=== PATIENT | female | born 1955 | race African-American/Black ===

== ENCOUNTER 2018-04-13 08:45 | Inpatient (IN) ==
[2018-04-13] MEDS ORDERED: DUONEB (A & A) INH ONE (09:28)
[2018-04-13] MEDS ORDERED: ROCEPHIN 1 GM in NS 50 ML IV ONE (09:28)
[2018-04-13] MEDS ORDERED: SOLU-MEDROL IV ONE (09:28)
[2018-04-13] MEDS ORDERED: ZITHROMAX PO ONE (09:30)
[2018-04-13 09:56] LABS: BASO# 0.01 X1000 (0.0-0.2); BASO% 0.1 % (0.0-0.8); EOS# 0.01 X1000 (0.0-0.7); EOS% 0.1 % (0.0-10.0); HEMATOCRIT 41.5 % (37.0-47.0); HEMOGLOBIN 12.7 g/dL (12.0-16.0); IMM GRAN# 0.02 X1000 (0.0-0.04); IMM GRAN% 0.3 % (0.0-0.5); LYMPH# 0.64 X1000 (1.2-3.4); LYMPH% 8.4 % (20.5-51.1); MCHC 30.6 g/dL (33-37); MCV 91.6 FL (81-99); MONO# 0.49 X1000 (0.11-0.59); MONO% 6.4 % (1.7-9.3); MPV 10.9 FL (7.4-10.4); NEUT# 6.47 X1000 (1.4-6.5); NEUT% 84.7 % (42.2-75.2); PLT 187 X1000 (130-400); RBC 4.53 XMIL (4.2-5.4); WBC 7.64 X1000 (4.8-10.8)
--- NOTE | 2018-04-13 10:29 | Diag Imaging Result Doc PS360 ---
CHEST-2 VIEWS - 04/13/2018 INDICATION: sob COMPARISON: None FINDINGS: There is some faint linear atelectasis in the lung bases. No substantial infiltrates. Heart size and pulmonary vascularity is normal. No pneumothorax or pleural effusion. IMPRESSION: Faint linear atelectasis in the lung bases. Electronically signed by Waylon Mead 04/13/2018 10:26 AM
[2018-04-13 10:31] LABS: ALB/GLOB RATIO 1.2; ALBUMIN 4.3 g/dL (3.5-5.0); CALCIUM 10.3 mg/dL (8.8-10.2); CREATININE 1.2 mg/dL (0.5-0.9); POTASSIUM 4.4 mmol/L (3.5-5.1); TOTAL BILIRUBIN 0.54 mg/dL (0.20-1.00); TOTAL PROTEIN 7.8 g/dL (6.3-8.3)
--- NOTE | 2018-04-13 10:48 | EKG Report ---
Test Performed on : 04/13/2018 10:27:45 AM Test Reason : sob Blood Pressure : / mmHG Vent. Rate : 091 BPM Atrial Rate : 091 BPM P-R Int : 164 ms QRS Dur : 068 ms QT Int : 404 ms P-R-T Axes : 055 010 -11 degrees QTc Int : 496 ms Normal sinus rhythm. ST & T wave abnormality, consider anterior ischemia Prolonged QT Abnormal ECG When compared with ECG of 19-APR-2017 16:21, T wave inversion now evident in Inferior leads T wave inversion now evident in Anterior leads Nonspecific T wave abnormality, improved in Lateral leads QT has lengthened Unconfirmed Result
--- NOTE | 2018-04-13 11:50 | PROVIDER DOCUMENTATION ---
HPI-Respiratory General - General Chief Complaint: Shortness of Breath Stated Complaint: sob Time Seen by Provider: 04/13/18 09:17 Source: patient Allergies/Adverse Reactions: Patient Allergies Allergy/AdvReac Type Severity Reaction Status Date / Time No Known Allergies Allergy Verified 11/27/15 12:23 Home Medications: Home Medication List Medication Instructions Recorded Confirmed Last Taken Type Losartan/Hydrochlorothiazide 1 each PO DAILY 03/01/12 04/13/18 04/13/18 History [Hyzaar 100/25 Tablet] Fluticasone 50 Mcg Nasal [place] 2 spray JAMMIE DAILY 11/27/15 04/13/18 04/20/17 History [Flonase] Gabapentin 300 mg PO TID 11/27/15 04/13/18 04/13/18 History Acetaminophen [Extra Strength 2 tab PO Q6HR 04/19/17 04/13/18 04/13/17 History Non-Aspirin] Albuterol Sulfate [Ventolin Hfa] 2 puff IH PRN PRN 04/19/17 04/13/18 04/18/17 History Ascorbic Acid/Vitamin E/Biotin 1 each PO DAILY 04/19/17 04/13/18 04/10/17 History [Hair Skin Nails-Biotin Gummies] Biotin 10,000 mcg PO DAILY 04/19/17 04/13/18 04/10/17 History Cholecalciferol (Vitamin D3) 2 cap PO DAILY 04/19/17 04/13/18 04/10/17 History [Vitamin D3] Cranberry Conc/Ascorbic Acid 2 each PO BID 04/19/17 04/13/18 04/10/17 History [Cranberry Concentrate Softgel] Fluticasone/Vilanterol [Breo 1 each IH DAILY 04/19/17 04/13/18 04/13/18 History Ellipta 100-25 Mcg INH] Folic Acid 1 mg PO DAILY 04/19/17 04/13/18 04/10/17 History Ginkgo Biloba 2 cap PO BID 04/19/17 04/13/18 04/10/17 History Gluc/Rinku-MSM#2/C/D3/Frank/Born 1 each PO DAILY 04/19/17 04/13/18 04/10/17 History [Kxxslqftsy-Btbgnuwkudk-EJT Tab] Methotrexate 3 tab PO SA 04/19/17 04/13/18 04/10/17 History Metoprolol Succinate E.r. [Toprol 0.5 tab PO BID 04/19/17 04/13/18 04/13/18 History Xl] Multivit-Min/Folic Acid/Biotin 1 each PO DAILY 04/19/17 04/13/18 04/10/17 History [Women Multivit W-Biotin Gummy] Multivit-Minerals/Folic Acid 2 tab PO DAILY 04/19/17 04/13/18 04/10/17 History [Centrum Multigummies] Mycophenolate Mofetil 250 mg PO BID 04/19/17 04/13/18 04/10/17 History Omeprazole 20 mg PO DAILY 04/19/17 04/13/18 04/10/17 History Prednisone 5 mg PO DAILY 04/19/17 04/13/18 04/13/18 History Albuterol Sulfate [Proair Hfa] 8.5 gm IH PRN PRN 04/13/18 04/13/18 Unknown History Aspirin [Aspir-Low] 81 mg PO DAILY 04/13/18 04/13/18 04/13/18 History - History of Present Illness-Resp Nature of Presenting Problem: HPI: Pt reprost to ED with SOB. 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 she states that for the past few days she has been feeling SOB. She states that this am while at work her SOB became progressively worse, she called EMS. She denies CP, she also complains of cough and dypsnea upon exertion. Quality of Pain: reports: none Severity in ED: reports: moderate Onset/Duration: reports: this morning Timing: reports: improving Exposure: reports: unknown cause Cough Quality/Degree: reports: mild Episode Frequency: chronic episodes Current Respiratory Medication Therapy: Initiated albuterol/atrovent inhale, Initiated steroid inhaler Modifying Factors: improves with: exertion, coughing Associated Symptoms: reports: shortness of breath Similar Symptoms Previously?: Yes Recently seen or treated by another doctor?: Yes Review of Systems - Adult - REVIEW OF SYSTEMS - ADULT Constitutional: reports: no symptoms reported Eyes: reports: no symptoms reported Ears, Nose, Mouth & Throat: reports: no symptoms reported Cardiovascular: reports: no symptoms reported Respiratory: reports: see HPI Gastrointestinal: reports: no symptoms reported Genitourinary: reports: no symptoms reported Musculoskeletal: reports: no symptoms reported Integumentary: reports: no symptoms reported Neurological: reports: no symptoms reported Psychiatric: reports: no symptoms reported Endocrine: reports: no symptoms reported Hematologic/Lymphatic: reports: no symptoms reported Allergic/Immunologic: reports: no symptoms reported All Other Systems: Reviewed and Negative Past History - Adult - PAST MEDICAL HISTORY-ADULT Review of Records: reports: Old Records Reviewed, Nursing Assessment Review, Medications Reviewed, Social history reviewed & non-contributory. Major Childhood Illnesses: reports: denies history Cardiovascular: reports: HTN Respiratory: reports: COPD, other (sarcoidosis) Gastrointestinal: reports: denies history Obstetrical/Gynecological: reports: denies history Genitourinary: reports: denies history Musculoskeletal: reports: intervertebral disc disease, neck/back injury Neurological: reports: denies history Endocrine/Immune: reports: denies history Other Conditions: reports: other (macular degeneration) - PRIOR SURGERIES/PROCEDURES Surgical/Procedure History: reports: hysterectomy - IMMUNIZATION STATUS Childhood Immunizations: See Nurse Assessment Flu Vaccine: See Nurse Assessment - FAMILY HISTORY Family History: reviewed, not pertinent - SOCIAL HISTORY Smoking: denies Substance Use: none/never Alcohol Use Frequency: never Living Situation: family Physical Exam-General - PHYSICAL EXAM-ADULT Initial Vital Signs Reviewed: Yes - CONSTITUTIONAL General Appearance: appears well, alert, no apparent distress - EYES Eyes: pink conjunctivae - HEAD, EARS, NOSE, MOUTH & THROAT HENMT: moist mucous membranes - NECK Neck: full range of motion - RESPIRATORY Respiratory: chest non-tender, lungs clear, normal breath sounds, no pleuratic chest pain. negative: crackles, rales, rhonchi, stridor, wheezing - CARDIOVASCULAR Cardiovascular: normal peripheral pulses, regular rate, rhythm, no edema - GASTROINTESTINAL (ABDOMEN) Abdominal Exam: normal bowel sounds, non tender, soft, no organomegaly - LYMPHATIC Lymphatic: no adenopathy - MUSCULOSKELETAL Extremity: non-tender, normal gait - SKIN Integumentary: normal color, normal turgor, warm/dry - NEUROLOGIC Neurologic: grossly normal - PSYCHIATRIC Psych/Mental Status: normal mood/affect, normal thought content, normal thought process Progress - PLAN OF CARE/RESULTS Progress/Plan/Lab Results: Vital Signs - 8 hr 04/13/18 08:59 04/13/18 09:00 04/13/18 09:01 Temperature Pulse Rate 94 H Respiratory Rate 27 H Blood Pressure 108/83 O2 Sat by Pulse Oximetry 85 L 89 L 93 L 04/13/18 09:02 04/13/18 09:05 04/13/18 09:10 Temperature 98.5 F Pulse Rate 96 H 93 H 94 H Respiratory Rate 19 24 16 Blood Pressure 105/78 105/78 O2 Sat by Pulse Oximetry 91 L 93 L 95 04/13/18 09:20 04/13/18 09:30 04/13/18 09:34 Temperature Pulse Rate 95 H 95 H 94 H Respiratory Rate 17 27 H 31 H Blood Pressure 113/102 O2 Sat by Pulse Oximetry 89 L 93 L 93 L 04/13/18 09:40 04/13/18 09:50 04/13/18 10:16 Temperature Pulse Rate 92 H 92 H 93 H Respiratory Rate 19 23 18 Blood Pressure O2 Sat by Pulse Oximetry 95 93 L 93 L 04/13/18 10:18 04/13/18 10:20 Temperature Pulse Rate 92 H 89 Respiratory Rate 23 Blood Pressure O2 Sat by Pulse Oximetry 92 L 95 Laboratory Results - last 24 hr 04/13/18 04/13/18 09:45 09:45 WBC 7.64 RBC 4.53 Hgb 12.7 Hct 41.5 MCV 91.6 MCH 28.0 MCHC 30.6 L RDW Std Deviation 15.0 H Plt Count 187 MPV 10.9 H Immature Gran % (Auto) 0.3 Neut % (Auto) 84.7 H Lymph % (Auto) 8.4 L Owen % (Auto) 6.4 Eos % (Auto) 0.1 Baso % (Auto) 0.1 Immature Gran # (Auto) 0.02 Neut # (Auto) 6.47 Lymph # (Auto) 0.64 L Owen # (Auto) 0.49 Eos # (Auto) 0.01 Baso # (Auto) 0.01 Sodium 142 Potassium 4.4 Chloride 101 Carbon Dioxide 23 L Anion Gap 18 BUN 28 H Creatinine 1.2 H Estimated GFR/1.73 m2 55 BUN/Creatinine Ratio 23 Glucose 117 H Calculated Osmolality 290 Calcium 10.3 H Total Bilirubin 0.54 AST 66 H ALT 62 H Alkaline Phosphatase 150 H Total Protein 7.8 Albumin 4.3 Globulin 3.5 Albumin/Globulin Ratio 1.2 Orders Category Date Time Status CHEST-2 VIEWS [RAD] Stat Exams 04/13/18 09:28 Completed CBC WITH ELECTRONIC DIFF [HEME] Stat Lab 04/13/18 09:45 Completed COMPREHENSIVE METABOLIC PANEL [CHEM] Stat Lab 04/13/18 09:45 Completed Albuterol 2.5MG/Ipratrop 0.5MG [Duoneb (A & A)] Med 04/13/18 09:28 Discontinued 3 ml INH NOW ONE Azithromycin [Zithromax] Med 04/13/18 09:30 Discontinued 500 mg PO NOW ONE CefTRIAXONE [Rocephin] 1 gm Med 04/13/18 09:28 Discontinued 0.9% Sodium Chloride Inj [Ns] 50 ml IV NOW Methylprednisolone Sod Succ [Solu-Medrol] Med 04/13/18 09:28 Discontinued 60 mg IV NOW ONE Aerosol Treatments Routine Oth 04/13/18 09:30 Completed Aerosol Treatments Stat Oth 04/13/18 09:30 Completed EKG [EKG] Stat Ther 04/13/18 09:28 Draft A/P : Pt is having COPD exacerbation. Labs wnl. Pt greatly improved after neb Tx , steroids, and AB. Will DC home with antiobiotics and close FU with PCP. Vitals stable. Result Diagrams: 04/13/18 09:45 04/13/18 09:45 Departure - Departure Date of Disposition Decision: 04/13/18 Time of Disposition Decision: 11:59 DIAGNOSIS: COPD exacerbation Disposition: HOME 01 Certified Medical Emergency: Emergent Condition: Fair Additional Freetext Instructions: We have examined and treated you today on an emergency basis only. This was not a substitute for, or an effort to provide, complete medical care. In most cases , you must let your doctor check you again. Tell your doctor about any new or lasting problems. We cannot recognize and treat all injuries or illnesses in one Emergency Department visit. If you had special tests, such as X-rays or CT scans, will be reviewed by radiologist and will call you if there are any new suggestions Follow up with primary care provider in 1 to 2 days if no improvement. If you do not have a primary care provider, you need to choose one as soon as possible. Take medicines as prescribed. Monitor for any side effects or adverse events from medications. If any side effect, adverse event or rash develops, or if you suspect any other adverse reaction to the medication, then discontinue the medication immediately and contact clinic /PCP or go to the nearest ER. Narcotic meds / sedative meds instruction - patent advised not to drive, operate any machinery or go into water after taking meds as it may impair mental ability to react to the situation in an appropriate manner . Continue other current medicines. Follow up with PCP within 24-48 hours, or sooner if symptoms worsen or fail to improve. Patient / guardian verbalizes understanding of treatment plan, medication, and side effects and agrees with treatment plan. Patient leaves ER in stable condition and ambulatory state. Return to ER as needed. Discharge instructions reviewed verbally and given to patient in written form. Follow up with primary care provider. Referrals and Follow-Ups: Syeda Ibarra MD [Primary Care Provider] - - Critical Care Note This patient required my direct & personal management of CC.: No Attestation - Physician/ BENITA Attestation Patient care was provided by Advanced Practice Provider:: No The physician spent face to face time with patient:: Yes Advanced Practice Provider documentation review:: Supervising physician onsite and consulted in the evaluation and care of this patient. The physician did have a face to face encounter with the patient.
[2018-04-13] MEDS ORDERED: DUONEB (A & A) INH PRN (16:29)
[2018-04-13] MEDS ORDERED: TYLENOL PO PRN (16:29)
[2018-04-13] MEDS ORDERED: ZOFRAN IV PRN (16:29)
[2018-04-13] MEDS: DUONEB (A & A) INH SCH ×2 (16:53→21:10)
[2018-04-13] MEDS ORDERED: SODIUM CHLORIDE 0.9% INJ SCH (17:00)
[2018-04-13] MEDS: NS 1,000 ML IV SCH (17:49)
[2018-04-13] MEDS: SOLU-MEDROL IV SCH (19:09)
[2018-04-13] MEDS: PROTONIX IV SCH (19:10)
[2018-04-13] MEDS: TOPROL XL PO SCH (22:04)
[2018-04-13] MEDS: CELLCEPT PO SCH (22:04)
[2018-04-13] MEDS: NEURONTIN PO SCH (22:04)
--- NOTE | 2018-04-13 23:51 | HISTORY AND PHYSICAL ---
CHIEF COMPLAINT: Was shortness of breath. HISTORY OF PRESENT ILLNESS: This is a 62-year-old female with sarcoid, no COPD history, presenting with shortness of breath. The patient came in for evaluation. She says she has been short of breath for the last 1 to 2 weeks. She has had a cough but minimal production, no fevers, but she says her shortness of breath is getting progressively worse the point of having persistent dyspnea on exertion. She cannot cross the room without getting short of breath. No fevers noted. She is on CPAP and oxygen at night and she usually sees Dr. Bills. She is on low-dose steroids. She is also on mycophenolate mofetil. Workup in the ER revealed bronchospasm and hypoxia. Her chest x-ray showed linear atelectasis in lung bases. The patient had issues with breathing and shortness of breath, she desaturated to 83-84% prior to discharge and even on oxygen she is about 94% on 3 L and she does have some increased work of breathing. Admitted for sarcoid exacerbation presumably with hypoxia. PAST MEDICAL HISTORY: 1. Sarcoidosis . 2. Allergic rhinitis. 3. Neuropathy. 4. Hypertension. 5. Obstructive sleep apnea. 6. Reported history of COPD although not completely convinced she truly has that. 7. Macular degeneration. PAST SURGICAL HISTORY: She has had hysterectomy and then she had bowel injury and she had to have a partial colectomy and then reversal. FAMILY HISTORY: Mother of a stroke, father unknown of "old age. " SOCIAL HISTORY: She denies tobacco, ethanol is occasional usage. She works for [employer]. ALLERGIES: No known drug allergies. MEDICATION LIST: Is extensive, Tylenol, albuterol, vitamin C, aspirin, biotin, vitamin D3, cranberry, fluticasone, Breo Ellipta daily so she likely has COPD, folic acid daily, gabapentin 300 t.i.d., ginkgo biloba, losartan hydrochlorothiazide 100/25, methotrexate once a day, Toprol-XL 25 b.i.d., multivitamin, mycophenolate mofetil 20/250 b.i.d., omeprazole 20 daily, prednisone 5 daily, azithromycin was a recently given, She was going to be discharged from the ER because of her hypoxia she could not be discharged. REVIEW OF SYSTEMS: No weight loss or anything to that effect. PHYSICAL EXAM: She has a blood pressure 103/77, heart rate of 90, respiratory rate of 19, temperature was 97.6, 85% on room air 92 on 2 L. GENERAL: A well-developed female in no acute distress. HEENT: Was normocephalic, atraumatic. Her right eye is opacified. 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 Extraocular moves were intact. Moist mucous membranes. NECK: Supple. PULMONARY: Bilateral breath sounds clear to auscultation with occasional rhonchi and rales at the bases. GI: Was soft, nontender, nondistended. Bowel sounds are positive. EXTREMITIES: No clubbing or cyanosis. LYMPH: No peripheral edema. NEUROLOGICAL: Nonfocal. MUSCULOSKELETAL: 4/5 in all 4 extremities. LABORATORY DATA: Her white count 7, hemoglobin and hematocrit 12 and 41, platelets 187,000, creatinine 1.2, AST and ALT of 66 and 62. Chest x-ray showed atelectasis. ASSESSMENT: 62-year-old female presenting with hypoxic respiratory failure associated with sarcoid presumably sarcoid exacerbation could be potentially a chronic obstructive pulmonary disease exacerbation. 1. Hypoxic respiratory failure. Will try to wean her O2 requirement although she may require some to go home with especially from a exertional standpoint. 2. Sarcoidosis exacerbation. We will continue regular treatments, steroid treatments and follow for improvement clinically. I will pursue CT scan just to better evaluate. She is on methotrexate which I am not clear if that is for sarcoid or other etiology, may hold that for now. 3. Hypertension. Continue regular medications follow. 4. Disposition. She will likely be here for at least 24 hours, perhaps longer depending on her clinical status. cc: Michel Bean MD [facility]ERKirti
[2018-04-14] MEDS: NS 1,000 ML IV SCH ×2 (02:39→22:20)
[2018-04-14] MEDS: SOLU-MEDROL IV SCH ×3 (02:39→22:21)
[2018-04-14] MEDS: DUONEB (A & A) INH SCH ×4 (03:18→21:31)
[2018-04-14] MEDS ORDERED: LOVENOX SUBQ SCH (06:00)
[2018-04-14 06:05] LABS: HEMATOCRIT 37.5 % (37.0-47.0); HEMOGLOBIN 11.5 g/dL (12.0-16.0); LYMPH# 0.41 X1000 (1.2-3.4); LYMPH% 6.6 % (20.5-51.1); MCH 28.1 PG (27-31); MCHC 30.7 g/dL (33-37); MCV 91.7 FL (81-99); MONO# 0.06 X1000 (0.11-0.59); MPV 10.8 FL (7.4-10.4); NEUT# 5.72 X1000 (1.4-6.5); NEUT% 92.4 % (42.2-75.2); PLT 169 X1000 (130-400); RBC 4.09 XMIL (4.2-5.4); RDW 14.6 % (11.5-14.5); WBC 6.19 X1000 (4.8-10.8)
[2018-04-14 06:46] LABS: AGAP 15; ALB/GLOB RATIO 1.1; ALBUMIN 3.6 g/dL (3.5-5.0); ALKALINE PHOSPHATASE 115 U/L (32-104); BUN 27 mg/dL (8-22); CALCIUM 8.9 mg/dL (8.8-10.2); CHLORIDE 102 mmol/L (98-107); COSMO 287; CREATININE 0.9 mg/dL (0.5-0.9); ESTIMATED GFR > 60; GLUCOSE 176 mg/dL (70-104); GOT 38 U/L (10-30); GPT 48 U/L (10-36); SODIUM 139 mmol/L (136-145); TCO2 22 mmol/L (25-35); TOTAL BILIRUBIN 0.35 mg/dL (0.20-1.00); TOTAL PROTEIN 6.8 g/dL (6.3-8.3)
[2018-04-14 07:00] LABS: LYMPHS 8 % (21-51); MONO 2 % (1-9); SEGS 90 % (42-75)
[2018-04-14] MEDS: VITAMIN D PO SCH (08:02)
[2018-04-14] MEDS: ROCEPHIN 1 GM in NS 50 ML IV SCH (08:02)
[2018-04-14] MEDS: ASPIRIN EC PO SCH (08:02)
[2018-04-14] MEDS: FOLIC ACID PO SCH (08:02)
[2018-04-14] MEDS: NEURONTIN PO SCH ×3 (08:02→22:20)
[2018-04-14] MEDS: PATIENT'S OWN MED PO SCH ×3 (08:03)
[2018-04-14] MEDS: HYZAAR 50/12.5 MG PO SCH (08:03)
[2018-04-14] MEDS: TOPROL XL PO SCH ×2 (08:05→22:19)
[2018-04-14] MEDS: CELLCEPT PO SCH ×2 (08:11→22:19)
[2018-04-14] MEDS: BREO ELLIPTA 100/25 MCG INH INH SCH (10:26)
[2018-04-14 10:54] LABS: BE -2.1 mmoll (-3.0-3.0); BLOOD TYPE ARTERIAL; HCO3-(ACT) 23.3 mmoll (20.0-26.0); METHB 1.2 % (0.0-1.5); O2(CT) 16.1 mL/dL (15.0-23.0); O2HB 95.9 % (95.0-99.0); PCO2(98.6) 36 mmHg (35-45); PO2(98.6) 90 mmHg (60-100); SAMPLE BLOOD; SAO2 98.1 % (95.0-100.0); THB 11.9 g/dL (11.5-17.4)
[2018-04-14 10:55] LABS: ALLEN TEST NO; MODALITY CANNULA
[2018-04-14] MEDS ORDERED: FLU VACCINE IM ONE (10:55)
--- NOTE | 2018-04-14 14:07 | Diag Imaging Result Doc PS360 ---
EXAM: CT THORAX W/CONTRAST INDICATION: pneumonia TECHNIQUE: This exam was performed using automated exposure control, adjustment of mA or kV according to patient size, and/or use of iterative reconstruction technique. COMPARISON: None. FINDINGS: There is a large saddle embolus involving both the right and left main pulmonary arteries and extending into the higher order branches leading to the lower lobes. The clot burden is heavy. There is no evidence of significant cardiomegaly. There are nonspecific borderline and mildly prominent mediastinal lymph nodes. A few contain calcifications suggesting prior granulomatous disease. There are no abnormal mediastinal fluid collections. There is a very small right pleural effusion and minimal right basilar atelectasis. There is even milder subsegmental atelectasis at the left lung base. The lungs are clear, otherwise. There is no evidence of pneumonia. There is no evidence of pulmonary infarct. There is no pneumothorax. Limited views of the upper abdomen are essentially unremarkable. IMPRESSION: 1.Large central saddle pulmonary embolism with a heavy clot burden. 2.Small right pleural effusion and mild bibasilar atelectasis. 3.No evidence of pneumonia. 4.Other external/nonacute findings detailed above. The findings were discussed with Ty Garduno, a nurse on the patient's floor, to be immediately relayed to Dr. Bean at 04/14/2018 2:03 PM and was readback. Electronically signed by Morales Stinson 04/14/2018 2:04 PM
[2018-04-14] MEDS: PRED FORTE 1% OPH SUSPENSION RIGHT EYE SCH ×2 (14:55→22:20)
[2018-04-14] MEDS: LOVENOX SUBQ SCH (14:55)
[2018-04-14] MEDS: FLONASE NAS SCH (15:00)
[2018-04-14] MEDS: PROTONIX IV SCH (17:03)
[2018-04-14 17:52] LABS: URINE SOURCE CATH
[2018-04-14 18:07] LABS: BILIRUBIN URINE NEGATIVE (NEGATIVE); BLOOD URINE NEGATIVE (NEGATIVE); COLOR YELLOW; GLUCOSE URINE 70 mg/dL (NEGATIVE); KETONE URINE NEGATIVE (NEGATIVE); LEUKOCYTES URINE NEGATIVE (NEGATIVE); NITRITE URINE NEGATIVE (NEGATIVE); PH URINE 5.5; PROTEIN URINE TRACE mg/dL (NEGATIVE); SP GRAVITY URINE > 1.050; TURBIDITY URINE CLEAR (CLEAR); UR EPITHELIAL CELLS <10 /HPF (<10); URINE BACTERIA NEGATIVE /HPF; URINE RBC <10 /HPF (<10); URINE WBC <10 /HPF (<10); UROBILINOGEN URINE NORMAL (NORMAL)
--- NOTE | 2018-04-14 23:19 | PROGRESS NOTE ---
DATE: 04/14/2018 SUBJECTIVE: The patient still fairly short of breath but doing too badly. OBJECTIVE: Blood pressure 118/77, heart rate 90, respiratory rate 22, temperature 97.8 degrees, 99% on 2.5 L.Cardiovascular: She is tachy. Pulmonary: She has got diminished breath sounds at the bases and generally speaking throughout. GI: Soft, nontender, nondistended. Bowel sounds are positive. She is visibly working harder to breathe though just lying in bed. LABORATORY STUDIES: White count is 6, hemoglobin and hematocrit 11, 37, platelets 169,000, pH was 7.4, pCO2 36, PaO2 90, BUN and creatinine are 27 [address] today unfortunately shows a large PE saddle embolus, clot burden is heavy. No cardiomegaly. PROBLEM LIST: 1. Pulmonary embolism saddle embolus, she does not have acute indication for any thrombolytics right now but she does have a significant pulmonary embolism, we will anticoagulate, get Dopplers of her legs and but the patient is she has significant pulmonary embolism on both sides, in any case patient was. Acute pulmonary embolism, will continue anticoagulation. She has been placed on Lovenox. I am going to transfer her to the step-[facility] for closer monitoring. We will continue to follow. 2. Sarcoid aware of diagnosis. I am going to knock down her steroids because I am not sure really this is a sarcoid flare per se. 3. We will get VTE Dopplers, not sure what the mechanism of her DVT PE is unless is related to sarcoid. She may need a hypercoagulable workup or at least cancer screening. Pulmonary has already been consulted because she was a patient of Dr. Bills so we will review his treatment and see how she does. 4. Disposition. Care is still very guarded. I think this is more related to acute pulmonary embolism than any other process currently. We will continue to follow closely. Disposition pending her clinical status. cc: Michel Bean MD
[2018-04-15] MEDS: LOVENOX SUBQ SCH ×2 (02:14→14:14)
[2018-04-15] MEDS: PRED FORTE 1% OPH SUSPENSION RIGHT EYE SCH ×4 (02:15→21:45)
[2018-04-15] MEDS: NS 1,000 ML IV SCH ×3 (02:15→14:14)
[2018-04-15] MEDS: DUONEB (A & A) INH SCH ×4 (03:02→20:43)
[2018-04-15 05:57] LABS: HEMOGLOBIN 10.9 g/dL (12.0-16.0); IMM GRAN# 0.03 X1000 (0.0-0.04); IMM GRAN% 0.3 % (0.0-0.5); LYMPH# 0.43 X1000 (1.2-3.4); LYMPH% 4.5 % (20.5-51.1); MCHC 30.3 g/dL (33-37); MCV 92.5 FL (81-99); MONO# 0.29 X1000 (0.11-0.59); MONO% 3.1 % (1.7-9.3); NEUT# 8.74 X1000 (1.4-6.5); NEUT% 92.1 % (42.2-75.2); PLT 177 X1000 (130-400); RBC 3.89 XMIL (4.2-5.4); RDW 14.9 % (11.5-14.5); WBC 9.49 X1000 (4.8-10.8)
[2018-04-15 06:00] LABS: AGAP 13; BUN 26 mg/dL (8-22); CALCIUM 8.8 mg/dL (8.8-10.2); CHLORIDE 103 mmol/L (98-107); COSMO 286; ESTIMATED GFR > 60; GLUCOSE 160 mg/dL (70-104); POTASSIUM 3.7 mmol/L (3.5-5.1); SODIUM 139 mmol/L (136-145); TCO2 23 mmol/L (25-35)
[2018-04-15 07:00] LABS: LYMPHS 5 % (21-51); MONO 4 % (1-9); SEGS 91 % (42-75)
[2018-04-15] MEDS: BREO ELLIPTA 100/25 MCG INH INH SCH (08:12)
[2018-04-15] MEDS ORDERED: TRAVATAN 0.004% OPH SOLN RIGHT EYE SCH (09:00)
[2018-04-15] MEDS: FOLIC ACID PO SCH (09:15)
[2018-04-15] MEDS: TOPROL XL PO SCH ×2 (09:15→21:44)
[2018-04-15] MEDS: ASTELIN NASAL SPRAY NAS SCH (09:15)
[2018-04-15] MEDS: ASPIRIN EC PO SCH (09:15)
[2018-04-15] MEDS: NEURONTIN PO SCH ×3 (09:15→21:44)
[2018-04-15] MEDS: HYZAAR 50/12.5 MG PO SCH (09:15)
[2018-04-15] MEDS: VITAMIN D PO SCH (09:15)
[2018-04-15] MEDS: SOLU-MEDROL IV SCH (09:16)
[2018-04-15] MEDS: CYCLOGYL 1% RIGHT EYE SCH (09:19)
[2018-04-15] MEDS: PATIENT'S OWN MED PO SCH ×3 (09:20)
[2018-04-15] MEDS: ROCEPHIN 1 GM in NS 50 ML IV SCH (09:27)
[2018-04-15] MEDS: CELLCEPT PO SCH ×2 (09:30→21:44)
[2018-04-15] MEDS ORDERED: NS 1,000 ML IV SCH (16:15)
[2018-04-15] MEDS: PROTONIX IV SCH (16:47)
[2018-04-15] MEDS: FLONASE NAS SCH (16:54)
--- NOTE | 2018-04-15 17:31 | PROGRESS NOTE ---
DATE: 04/15/2018 SUBJECTIVE: She is breathing a bit better. She does not look like she is working as hard to breathe than she did previously. So, I do think she is somewhat improved. OBJECTIVE: Vital Signs: Blood pressure 142/82, heart rate of 89, respiratory rate 18, temperature 97.9, 100% on 2 L. Cardiovascular: Regular rate and rhythm. Pulmonary: Bilateral breath sounds. Clear to auscultation. Gastrointestinal: Soft, nontender, nondistended. Bowel sounds are positive. Extremities: No clubbing or cyanosis. Lymphatics: No peripheral edema. Neurologic: Nonfocal. LABORATORY DATA: Her white blood cell count is 9, hemoglobin and hematocrit 10 and 36, platelets 177,000. BUN and creatinine are [address] from yesterday showed a saddle embolism and some right pleural effusion and bibasilar atelectasis. No evidence of pneumonia. PROBLEM LIST: 1. Acute saddle embolism. She has also a left lower extremity DVT. She is on Lovenox. We are going to continue bed rest for at least another 24 hours and start to work on getting up tomorrow. Obviously, she is a high risk for decompensation. Pulmonary is following. 2. Acute hypoxic respiratory failure associated with PE. We will try to wean her O2, but I anticipate she will need oxygen to go home with. 3. Sarcoidosis with possible exacerbation. I am going to decrease her steroids. I really think most of this is related to PE. 4. Hypertension. We will continue regular medications and follow. DISPOSITION: Pending her clinical status, anticipate she will need oxygen. We will kind of see how things look otherwise. We will check a hypercoagulable test because it is not really clear what is causing this. She is up to date on her mammograms and pelvic exams, and those have not been abnormal. She has had a colonoscopy within the last 5 years and that has also been normal from what I understand. So, we are left with hypercoagulable workup. Unclear sarcoid is implied extensively with DVT formation. We will continue to follow. cc: Michel Bean MD
--- NOTE | 2018-04-15 19:57 | ECHO REPORT ---
ORDER DATE: 04/14/2018 ECHOCARDIOGRAM: INDICATION: 1. Hypoxia. FINDINGS: 1. The right atrium appears normal in size. 2. Mild tricuspid regurgitation. RV systolic pressure of 47. 3. Normal RV size and systolic function. 4. Trace pulmonic insufficiency. 5. Normal left atrial size at 3.3 cm. 6. No mitral prolapse. Trace mitral regurgitation. 7. Normal LV size, end-diastolic dimension of 3 cm. Normal wall thicknesses with a posterior and interventricular septal wall thickness of 0.9 cm each. There is hyperdynamic LV systolic function. The estimated ejection fraction is greater than 70%. There is a mid left ventricular cavity gradient of 37 mmHg on Valsalva. This would be consistent with the hyperdynamic function. 8. Aortic valve opens well. It is somewhat sclerotic, but not stenotic. The valve is trileaflet. There is trace insufficiency. 9. Aorta appears normal in visualized segments. 10. No pericardial effusion seen. cc: MD Michel Barros MD
--- NOTE | 2018-04-15 21:15 | CONSULTATION ---
DATE OF SERVICE: 04/14/2018 REQUESTING PROVIDER: Dr. Conor Bean REASON FOR CONSULTATION: Resp failure, sarcoidosis HISTORY OF PRESENT ILLNESS: This is a 62 yo AA female with a medical history of sarcoidosis, COPD, ROSA MARIA, hypertension, glaucoma, supraglottic stenosis, chronic sinusitis, chronic otitis media with effusion, chronic neck pain and neuropathy. She is well known to our office for sarcoidosis, COPD and ROSA MARIA. She was sent to ER from her work place yesterday morning via EMS for severe SOB. She was hypoxemic upon arrival with oxygen saturation at room air of 80s. CBC was non-significant, BMP showed BUN 28, creatinine 1.2, calcium 10.3, AST 66, ALT 62 and alkaline phosphatase 150. CXR revealed faint line atelectasis in the lung bases. She has been admitted to the medical floor for further evaluation and management. At the time of my exam, patient just came back from chest CT. She apparently has trouble to transfer herself from the wheelchair to the bed due to severe SOB. She reports some mild dry cough, mild nausea, dizziness and general weakness, but no fever, chill, pedal edema, chest pain or palpitation. PAST MEDICAL AND SURGICAL HISTORY: 1. Sarcoidosis 2. COPD, minimal severity based on the last PFT on 01/16/2018 in our office 3. ROSA MARIA on CPAP therapy with nocturnal oxygen at home 4. Hypertension 5. Glaucoma 6. Supraglottic stenosis 7. Chronic sinusitis 8. Chronic otitis media with effusion s/p bilateral maryingotomy and tympanovestomy tube insertion on 04/20/2017 9. Chronic neck pain 10. Neuropathy 11. Hysterectomy 12. Bowel injury with partial colectomy SOCIAL HISTORY: Patient works for [employer]. She denies any history of alcohol, tobacco or illicit drug use. FAMILY HISTORY: Positive for stroke. ALLERGIES: No known drug allergies. REVIEW OF SYSTEMS: A 10-point review of systems was conducted and the pertinent is listed within the HPI, otherwise noncontributory. PHYSICAL EXAMINATION: Vital Signs: Temperature of 97.8 degrees, blood pressure 118/77, pulse 90, respiratory rate 28, oxygen saturation 99% with a NC at 2.5L. General: patient is in mild respiratory distress. She is sitting in the wheelchair. She need a minimal assistance to transfer from the wheelchair to the bed due to severe SOB. 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 Respiratory: Rapid and shallow with diminished breathing sounds bilaterally, otherwise, clear to auscultation. Cardiovascular: Regular rate and rhythm without appreciable murmur. Gastrointestinal: Normal bowel sounds in all 4 quadrants, soft, nontender, and nondistended. Extremities: No pedal edema. No cyanosis or clubbing. Neurologic: Alert and oriented x3; able to follow commands; speech is fluent; she has generalized weakness, but she moves all 4 extremities equally well. DIAGNOSTIC DATA: CT thorax with contrast reveals large central saddle pulmonary embolism with a heavy clot burden, a very small right pleural effusion and minimal right basilar atelectasis; no evidence of pneumonia, pulmonary infarct, or pneumothorax. LABORATORY DATA: WBC 6.19, Hgb 11.5, Hct 37.5, PLT 169,000; Na+ 139, K+ 4.0, Cl - 102, CO2 22, BUN 27, Creatinine 0.9, glucose 176, AST 38, ALT 48, Alkaline phosphatase 115; ABG: pH 7.40, pCO2 36, pO2 90, HCO3- 23.3, base excess -2.1 and oxyhemoglobin 95.9. ASSESSMENT AND PLAN: This is a 62 yo AA female with a medical history of sarcoidosis, COPD, ROSA MARIA, hypertension, glaucoma, supraglottic stenosis, chronic sinusitis, chronic otitis media with effusion, chronic neck pain and neuropathy. She has been admitted to the medical floor with acute hypoxemic respiratory failure and sarcoid exacerbation. Chest CT today revealed large central saddle pulmonary embolism with a heavy clot burden. 1. Pulmonary embolism: Patient is currently stable; agree to start resuscitation with IV fluid and anticoagulant therapy with enoxaparin; continue supplemental oxygen; agree to do the venous doppler studies to rule in/out DVT; agree to put patient in strict bedrest at this time; agree to transfer patient to the [facility] for closer observation; consider hematology evaluation if needed. 2. SOB secondary to pulmonary embolism, sarcoidosis and COPD: continue supplemental oxygen; continue antibiotics steroids, and bronchodilators. 3. ROSA MARIA: BiPAP at bedtime and PRN with oxygen per protocol 4. Continue GI and DVT prophylaxis. Thank you for the courtesy of this consult. Dictated by MCKENZIE Delgado for Simin Bills MD cc: MCKENZIE Delgado MD [facility]
[2018-04-15] MEDS: TRAVATAN 0.004% OPH SOLN LEFT EYE SCH (21:44)
[2018-04-16] MEDS: PRED FORTE 1% OPH SUSPENSION RIGHT EYE SCH ×4 (03:04→21:31)
[2018-04-16] MEDS: LOVENOX SUBQ SCH ×2 (03:05→14:06)
[2018-04-16] MEDS: DUONEB (A & A) INH SCH ×4 (03:13→21:25)
[2018-04-16 05:39] LABS: HEMATOCRIT 35.5 % (37.0-47.0); HEMOGLOBIN 10.8 g/dL (12.0-16.0); IMM GRAN# 0.05 X1000 (0.0-0.04); IMM GRAN% 0.6 % (0.0-0.5); LYMPH# 0.61 X1000 (1.2-3.4); LYMPH% 7.4 % (20.5-51.1); MCH 28.2 PG (27-31); MCHC 30.4 g/dL (33-37); MCV 92.7 FL (81-99); MONO% 8.5 % (1.7-9.3); MPV 10.5 FL (7.4-10.4); NEUT# 6.92 X1000 (1.4-6.5); NEUT% 83.5 % (42.2-75.2); PLT 187 X1000 (130-400); RBC 3.83 XMIL (4.2-5.4); RDW 14.8 % (11.5-14.5); WBC 8.28 X1000 (4.8-10.8)
[2018-04-16 06:51] LABS: AGAP 12; BUN 22 mg/dL (8-22); CALCIUM 8.6 mg/dL (8.8-10.2); CHLORIDE 101 mmol/L (98-107); COSMO 282; CREATININE 0.8 mg/dL (0.5-0.9); ESTIMATED GFR > 60; GLUCOSE 146 mg/dL (70-104); MAGNESIUM 1.7 mg/dL (1.5-2.7); POTASSIUM 3.8 mmol/L (3.5-5.1); SODIUM 138 mmol/L (136-145); TCO2 25 mmol/L (25-35)
[2018-04-16] MEDS: BREO ELLIPTA 100/25 MCG INH INH SCH (07:29)
[2018-04-16] MEDS: CYCLOGYL 1% RIGHT EYE SCH (08:56)
[2018-04-16] MEDS: FLONASE NAS SCH (08:58)
[2018-04-16] MEDS: ASPIRIN EC PO SCH (08:59)
[2018-04-16] MEDS: TOPROL XL PO SCH ×2 (08:59→21:32)
[2018-04-16] MEDS: CELLCEPT PO SCH ×2 (08:59→21:32)
[2018-04-16] MEDS: ASTELIN NASAL SPRAY NAS SCH (08:59)
[2018-04-16] MEDS: NEURONTIN PO SCH ×3 (08:59→21:32)
[2018-04-16] MEDS: FOLIC ACID PO SCH (08:59)
[2018-04-16] MEDS: SOLU-MEDROL IV SCH (09:00)
[2018-04-16] MEDS: HYZAAR 50/12.5 MG PO SCH (09:00)
[2018-04-16] MEDS: ROCEPHIN 1 GM in NS 50 ML IV SCH (09:00)
[2018-04-16] MEDS: VITAMIN D PO SCH (09:00)
[2018-04-16] MEDS: PATIENT'S OWN MED PO SCH ×3 (09:01)
--- NOTE | 2018-04-16 15:14 | PROGRESS NOTE ---
DATE: 04/16/2018 SUBJECTIVE: Patient resting comfortably in bed. Not in any obvious distress. OBJECTIVE: Vital Signs: As follows: Temperature 97.9, pulse 75, respiratory rate 17, blood pressure 137/85, oxygen is 93%. HEENT: Atraumatic, normocephalic. Cardiovascular: S1, S2. Respiratory: Has evidence of good air entry bilaterally. Abdomen: Soft, nontender. No masses felt. Extremities: Extremities have edema in both legs. Central Nervous System: No obvious focal deficits noted. LABS: As follows: WBC is 8.28, hematocrit is 35.5 with a platelet count of 187,000. Sodium 138, potassium 3.8, chloride is 101, bicarb 25, BUN is 20, creatinine 0.8. ASSESSMENT AND PLAN: 1. Acute pulmonary thromboembolism. Continue anticoagulation. 2D echo of the heart reviewed. I do not see any sign of right ventricular strain. 2. Sarcoidosis. Continue steroids. 3. Hypertension. Continue current antihypertensive regimen. 4. DVT prophylaxis. Patient is currently on Lovenox. 5. GI prophylaxis. PPI. cc: Micah Ho MD
[2018-04-16] MEDS: PROTONIX IV SCH (16:44)
[2018-04-16] MEDS: TRAVATAN 0.004% OPH SOLN LEFT EYE SCH (21:32)
[2018-04-17] MEDS: LOVENOX SUBQ SCH ×2 (02:23→14:43)
[2018-04-17] MEDS: PRED FORTE 1% OPH SUSPENSION RIGHT EYE SCH ×4 (02:23→20:53)
[2018-04-17] MEDS: DUONEB (A & A) INH SCH ×4 (03:38→22:21)
[2018-04-17] MEDS: BREO ELLIPTA 100/25 MCG INH INH SCH (08:24)
[2018-04-17] MEDS: ASTELIN NASAL SPRAY NAS SCH (08:37)
[2018-04-17] MEDS: CYCLOGYL 1% RIGHT EYE SCH (08:38)
[2018-04-17] MEDS: FLONASE NAS SCH (08:38)
[2018-04-17] MEDS: HYZAAR 50/12.5 MG PO SCH (08:39)
[2018-04-17] MEDS: ASPIRIN EC PO SCH (08:39)
[2018-04-17] MEDS: FOLIC ACID PO SCH (08:39)
[2018-04-17] MEDS: TOPROL XL PO SCH ×2 (08:39→20:53)
[2018-04-17] MEDS: NEURONTIN PO SCH ×3 (08:39→20:53)
[2018-04-17] MEDS: VITAMIN D PO SCH (08:39)
[2018-04-17] MEDS: SOLU-MEDROL IV SCH (08:40)
[2018-04-17] MEDS: CELLCEPT PO SCH ×2 (08:40→20:53)
[2018-04-17] MEDS: ROCEPHIN 1 GM in NS 50 ML IV SCH (08:40)
[2018-04-17] MEDS: PATIENT'S OWN MED PO SCH ×3 (08:40)
--- NOTE | 2018-04-17 13:30 | PROGRESS NOTE ---
DATE: 04/17/2018 SUBJECTIVE: Patient has no major complaints. She is sitting up in bed. OBJECTIVE: Vital signs: Blood pressure is 116/70, heart rate 74, respiratory rate 17, temperature 97.7 degrees, 98% on 2 L. Cardiovascular: Regular rate and rhythm. Pulmonary: Bilateral breath sounds clear to auscultation. GI: Soft, nontender, nondistended. Bowel sounds are positive. Extremities: No clubbing or cyanosis. Lymphatic: No peripheral edema. Neurological: Exam was nonfocal. LABORATORY DATA: White count is 8, hemoglobin and hematocrit 10 and 35, platelets 187,000. Protein C and antithrombin activity are normal. Basic was normal. Homocystine level was normal. PROBLEM LIST: 1. Saddle embolism, acute pulmonary embolism, and left lower extremity deep vein thrombosis. She is on anticoagulation. I think we could probably transition her in the next 24 hours if she is stable. We are going slow with her because she does have a saddle PE and she still has a DVT. We will try to get her up today, possibly with PT. 2. Sarcoidosis. She is on breathing treatments. I think her breathing is improving. Will decrease her steroids. 3. Hypertension. We will continue her current medication and follow. 4. Deep vein thrombosis prophylaxis. She has a PE. We are beyond prophylaxis. DISPOSITION: I think she will need home oxygen. I think if she is stable tomorrow we can transition her to Xarelto or Eliquis and go from there. cc: Michel Bean MD
[2018-04-17] MEDS: PROTONIX IV SCH (16:35)
[2018-04-17] MEDS: TRAVATAN 0.004% OPH SOLN LEFT EYE SCH (20:53)
[2018-04-18] MEDS: LOVENOX SUBQ SCH (01:54)
[2018-04-18] MEDS: PRED FORTE 1% OPH SUSPENSION RIGHT EYE SCH ×4 (01:54→21:21)
[2018-04-18] MEDS: DUONEB (A & A) INH SCH ×4 (03:28→21:22)
[2018-04-18 05:35] LABS: HEMATOCRIT 39.6 % (37.0-47.0); HEMOGLOBIN 12.3 g/dL (12.0-16.0); IMM GRAN# 0.08 X1000 (0.0-0.04); IMM GRAN% 0.9 % (0.0-0.5); LYMPH# 0.85 X1000 (1.2-3.4); LYMPH% 9.7 % (20.5-51.1); MCH 28.3 PG (27-31); MCHC 31.1 g/dL (33-37); MCV 91.2 FL (81-99); MPV 10.6 FL (7.4-10.4); NEUT# 7.12 X1000 (1.4-6.5); NEUT% 81.4 % (42.2-75.2); PLT 208 X1000 (130-400); RBC 4.34 XMIL (4.2-5.4); RDW 14.4 % (11.5-14.5); WBC 8.75 X1000 (4.8-10.8)
[2018-04-18 06:44] LABS: AGAP 11; BUN 25 mg/dL (8-22); CALCIUM 8.8 mg/dL (8.8-10.2); CHLORIDE 98 mmol/L (98-107); COSMO 281; CREATININE 0.7 mg/dL (0.5-0.9); ESTIMATED GFR > 60; GLUCOSE 113 mg/dL (70-104); SODIUM 138 mmol/L (136-145); TCO2 29 mmol/L (25-35)
[2018-04-18] MEDS: FLONASE NAS SCH (08:59)
[2018-04-18] MEDS: ASTELIN NASAL SPRAY NAS SCH (08:59)
[2018-04-18] MEDS ORDERED: SOLU-MEDROL IV SCH (09:00)
[2018-04-18] MEDS: ELIQUIS PO SCH ×2 (09:02→21:20)
[2018-04-18] MEDS: ASPIRIN EC PO SCH (09:03)
[2018-04-18] MEDS: ROCEPHIN 1 GM in NS 50 ML IV SCH (09:03)
[2018-04-18] MEDS: NEURONTIN PO SCH ×3 (09:03→21:20)
[2018-04-18] MEDS: VITAMIN D PO SCH (09:03)
[2018-04-18] MEDS: HYZAAR 50/12.5 MG PO SCH (09:03)
[2018-04-18] MEDS: TOPROL XL PO SCH ×2 (09:03→21:20)
[2018-04-18] MEDS: CELLCEPT PO SCH ×2 (09:03→21:20)
[2018-04-18] MEDS: FOLIC ACID PO SCH (09:03)
[2018-04-18] MEDS: PATIENT'S OWN MED PO SCH ×3 (09:04)
[2018-04-18] MEDS: CYCLOGYL 1% RIGHT EYE SCH (09:05)
[2018-04-18] MEDS: BREO ELLIPTA 100/25 MCG INH INH SCH (11:04)
[2018-04-18] MEDS: PROTONIX IV SCH (17:29)
[2018-04-18] MEDS: TRAVATAN 0.004% OPH SOLN LEFT EYE SCH (21:21)
[2018-04-19] MEDS: PRED FORTE 1% OPH SUSPENSION RIGHT EYE SCH ×2 (03:10→09:15)
[2018-04-19] MEDS: DUONEB (A & A) INH SCH ×2 (03:25→11:01)
[2018-04-19 07:39] VITALS: BP 134/82
[2018-04-19] MEDS ORDERED: PREDNISONE PO SCH (09:00)
[2018-04-19] MEDS: ASTELIN NASAL SPRAY NAS SCH (09:16)
[2018-04-19] MEDS: CYCLOGYL 1% RIGHT EYE SCH (09:16)
[2018-04-19] MEDS: PATIENT'S OWN MED PO SCH ×3 (09:17→09:18)
[2018-04-19] MEDS: ELIQUIS PO SCH (09:17)
[2018-04-19] MEDS: FOLIC ACID PO SCH (09:17)
[2018-04-19] MEDS: TOPROL XL PO SCH (09:17)
[2018-04-19] MEDS: HYZAAR 50/12.5 MG PO SCH (09:17)
[2018-04-19] MEDS: NEURONTIN PO SCH (09:17)
[2018-04-19] MEDS: CELLCEPT PO SCH (09:17)
[2018-04-19] MEDS: ASPIRIN EC PO SCH (09:17)
[2018-04-19] MEDS: VITAMIN D PO SCH (09:17)
[2018-04-19] MEDS: FLONASE NAS SCH (09:19)
[2018-04-19] MEDS: BREO ELLIPTA 100/25 MCG INH INH SCH (11:05)
--- NOTE | 2018-04-19 12:09 | Extremity Venous Study ---
PROCEDURE NAME: Venous U/S Bilateral Legs - 04/14/2018 BILATERAL LOWER EXTREMITY VENOUS DUPLEX AND COLOR FLOW IMAGING STUDY: Using the [employer] vivid E9 ultrasound System with a 9 LD transducer REFERRING PHYSICIAN: Dr. Michel Bean. LIGHTER: Maribell. INDICATIONS: Swelling and pain involving the lower extremities suggestive of deep venous thrombosis. FINDINGS: Right common femoral vein and its branches, deep and superficial femoral veins were satisfactorily imaged. They had flow through them and were compressible. Right popliteal vein and the deep veins below the right knee were all compressible and had flow through them. The superficial veins in the right lower extremity were compressible throughout their length. The left common femoral vein and its branches, the deep and superficial femoral veins were also satisfactorily imaged. There was an acute deep venous thrombosis involving the distal left superficial femoral vein and extending into the left popliteal vein. The deep veins below the left knee were all compressible and had flow through them. The superficial veins of the left lower extremity were compressible throughout their length. INTERPRETATION: 1. Acute deep venous thrombosis involving the distal left superficial femoral vein and extending into the left popliteal vein. 2. No evidence of acute deep or superficial venous thrombosis involving the right lower extremity. cc: MD Michel Duron MD
--- NOTE | 2018-04-20 05:23 | DISCHARGE SUMMARY ---
ADMISSION DATE: 04/13/2018 DISCHARGE DATE: 04/19/2018 Ms. Bacon is a 62-year-old lady with a history of sarcoid who had presented with shortness of breath and was found to have acute left lower extremity DVT and saddle pulmonary embolism. She was anticoagulated, which was later on changed to p.o. Eliquis. The patient did not go home yesterday when the discharge order was placed as she had some issues with her home keys. At the same time the patient thought she might need home oxygen; however, she did not qualify for it. SUBJECTIVE: Today morning she is denying any chest pain or shortness of breath. I extensively counseled her about natural history of pulmonary embolism, possible etiologies, need for anticoagulation. I also discussed with her about the risk of anticoagulation and the need for Pulmonology follow up. I answered all of her questions. DISCHARGE PHYSICAL EXAMINATION: Vital Signs: Temperature 98.2 degrees, pulse 63, blood pressure 130/80, saturating 96%. She did not qualify for home oxygen physical. Heart: S1, S2 normal. No murmur or gallop. Abdomen: Soft and nontender. Lungs: Air entry bilaterally equal. No wheeze, rhonchi, crackles. Extremities: No lower extremity edema. Neurologic: She is alert and oriented x3. DISCHARGE MEDICATIONS: The patient will be discharged on Eliquis. The discharge medication reconciliation was done yesterday by the attending physician. TIME SPENT: Less than 30 minutes was spent discharging this patient. cc: Hao Espinoza MD
--- NOTE | 2018-04-20 17:59 | PROGRESS NOTE ---
DATE: 04/18/2018 INITIAL HISTORY: Patient with few complaints, no current dyspnea. Still on low mask oxygen but with good saturations and turned off oxygen while I was in the room with no ill effect. No new complaints. No acute events overnight. REVIEW OF SYSTEMS: 12-point review of systems negative except as per interval history. LABS: CBC and basic metabolic panel unremarkable aside from a [*] with glucose 113. OBJECTIVE: Vitals: Temperature 98.1 degrees, pulse 73, respirations 16, blood pressure 125/70, O2 saturation 95% on room air. General: No acute distress. Vitals as above. HEENT: Normocephalic, atraumatic. Moist mucous membranes. No JVD. No cervical adenopathy. Cardiovascular: Regular rate and rhythm. No murmurs, rubs, or gallops. Pulmonary: Clear to auscultation bilaterally. Abdomen: Soft, nontender, nondistended. Bowel sounds positive. Extremities: Peripheral pulses intact. No clubbing or cyanosis. Trace pitting edema of the left lower extremity. Neurologic: Cranial nerves 2-12 grossly intact. No focal motor sensory deficits. Psychologic: Awake, alert, oriented x3, normal mood and affect. Skin: No new rashes or lesions identified. ASSESSMENT AND PLAN: 1. Acute pulmonary embolism. Transitioning from heparin drip to oral anticoagulant. Turned off oxygen this morning. I do not think she will need it. If there are no issues with transitioning her to oral anticoagulation her oxygenation does not drop then can likely discharge later today. 2. Sarcoidosis, steroids weaned, does not appear to be a major issue at this time. Monitor. 3. Hypertension reasonable control on current medication. 4. Deep vein thrombosis prophylaxis heparin/Eliquis.
--- NOTE | 2018-04-20 18:14 | DISCHARGE SUMMARY ---
ADMISSION DATE: 04/13/2018 DISCHARGE DATE: 04/19/2018 Physician asked that this be deleted.
== END 2018-04-19 15:17 | disposition home or self-care (01) | DRG 196 ==
LOC: SUPCPDRO → ED 08:45 → 4N 08:46 → SUATTDRO 08:46 → 3S 04-14 17:37
PROVIDERS: ATTEND Internal Medicine
CPT/HCPCS: 71020; 71046; 71260; 80048; 80053; 81001; 81240; 81241; 82805; 83090; 83735; 85025; 85300; 85301; 85302; 85306; 85612; 85613; 85730; 86147; 93005; 93306; 93970; 94640; 94761; 96365; 96375; 97162; 97530; 99285; A9270; C9113; J0696; J1650; J2920; J2930; J7030; J7506; J7512; J7517; Q9967; S0164